=== PATIENT | male | born 1990 | race Two or more races ===

== ENCOUNTER 2022-12-02 23:30 | Emergency (ER) | payer OTHER ==
[2022-12-03] MEDS ORDERED: Sucralfate Suspension 1 GM/10 ML Cup PO STA (00:12)
== END 2022-12-03 00:32 | disposition home or self-care (01) ==
LOC: JD.ED 23:30
DX: K21.9 Gastro-esophageal reflux disease without esophagitis (principal); Z88.6 Allergy status to analgesic agent; Z86.16 Personal history of COVID-19
CPT/HCPCS: 99283; A9270; 99282